=== PATIENT | female | born 1955 | race Caucasian/White ===

== ENCOUNTER 2021-11-18 15:49 | Emergency (ER) | payer MEDICARE ==
[2021-11-18] VITALS (8 sets, daily range): BP systolic 96–176; BP diastolic 75–121
[~2021-11-18] VITALS: Ht 162.6 cm; Wt 70.0 kg
[~2021-11-18 15:49] MED LIST: ARAVA20 MG PO; ASPIRIN81 MG PO; CIPROFLOXACN500 MG PO; ESTRACE VAG0.1 MG/GM VA; ESTRACE1 MG PO; ESTRADIOL0.5 MG PO; ESTRADIOL1 MG PO; FOLIC ACID1 MG PO; LOPRESSOR 550 MG/TAB PO; METHOTREXATE25 MG/ML IJ; METRONIDAZOL500 MG PO; MSM/GLUCOSA1 PO; PLAQUENIL200 MG OR; RAYOS5 MG PO
[2021-11-18] MEDS ORDERED: BUPROPION100 MG PO (16:28)
[2021-11-18] MEDS ORDERED: CALCIUM 600+D31 TA2 (16:30)
[2021-11-18 16:33] LABS: IMMATURE GRANULOCYTES 0.3 % (0.0-5.0); MEAN CELL VOLUME 96.6 fL CALC (80.0-100.0); MEAN CORPUSCULAR HGB CONC 33.1 g/dL CAL (32.0-36.0); NEUT# 4.51 thou/uL (2.00-7.15); RED BLOOD COUNT 4.75 mill/uL (4.20-5.60); RED CELL DISTRI WIDTH 13.2 % (11.5-15.5)
[2021-11-18 16:42] LABS: HEMATOCRIT 45.9 % (37.0-47.0); HEMOGLOBIN 15.2 g/dl (12.0-16.0)
[2021-11-18 16:45] LABS: ALKALINE PHOSPHATASE 103 u/l (38-126); ANION GAP 18 (6-22 (CALC)); BILIRUBIN, TOTAL 0.7 mg/dL (0.0-1.4); BUN 17 mg/dL (8-23); BUN/CREATININE RATIO 24 (12-20 (CALC)); CARBON DIOXIDE 25 mmol/l (22-30); CHLORIDE 105 mmol/l (95-108); CREATININE 0.7 mg/dL (0.5-1.0); GFR > 60 ML/MIN (>=60 (CALC)); GFR FOR AFR.AMER. > 60 ML/MIN (>=60 (CALC)); POTASSIUM 3.5 mmol/l (3.5-5.1); SGOT/AST 24 u/l (9-36); SODIUM 144 mmol/l (137-146)
[2021-11-18 16:50] LABS: TOTAL PROTEIN 8.6 g/dL (6.3-8.2)
[2021-11-18 17:16] LABS: TSH, 3RD GENERATION 3.11 uIU/mL (0.47 - 4.68)
[2021-11-18] MEDS ORDERED: ZESTRIL5 M1 PO ×2 (17:55→18:07)
== END 2021-11-18 18:19 | disposition home or self-care (01) ==
LOC: ED 15:49
PROVIDERS: Family Medicine
DX: R00.0 Tachycardia, unspecified (principal); I67.1 Cerebral aneurysm, nonruptured; Z95.828 Presence of other vascular implants and grafts

== ENCOUNTER 2022-02-09 13:32 | Emergency (ER) | payer MEDICARE ==
[~2022-02-09] VITALS: Ht 162.6 cm; Wt 65.9 kg
[~2022-02-09 13:32] MED LIST changes: +BUPROPION100 MG PO; +CALCIUM 600+D31 TA2; +ZESTRIL5 M1 PO
[2022-02-09 14:06] LABS: HEMATOCRIT 42.3 % (37.0-47.0); HEMOGLOBIN 13.7 g/dl (12.0-16.0); IMMATURE GRANULOCYTES 0.3 % (0.0-5.0); MEAN CELL VOLUME 97.2 fL CALC (80.0-100.0); MEAN CORPUSCULAR HGB 31.5 pG CALC (26.0-32.0); MEAN CORPUSCULAR HGB CONC 32.4 g/dL CAL (32.0-36.0); NEUT# 6.24 thou/uL (2.00-7.15); RED BLOOD COUNT 4.35 mill/uL (4.20-5.60); RED CELL DISTRI WIDTH 13.3 % (11.5-15.5)
[2022-02-09 14:19] LABS: ALBUMIN 4.4 g/dL (3.2-5.0); ALKALINE PHOSPHATASE 97 u/l (38-126); ANION GAP 11 (6-22 (CALC)); BILIRUBIN, TOTAL 0.5 mg/dL (0.0-1.4); BUN 17 mg/dL (8-23); BUN/CREATININE RATIO 24 (12-20 (CALC)); CARBON DIOXIDE 24 mmol/l (22-30); CHLORIDE 107 mmol/l (95-108); CREATININE 0.7 mg/dL (0.5-1.0); GFR FOR AFR.AMER. > 60 ML/MIN (>=60 (CALC)); GFR OTHER RACES > 60 ML/MIN (>=60 (CALC)); POTASSIUM 3.8 mmol/l (3.5-5.1); SGOT/AST 19 u/l (9-36); SODIUM 138 mmol/l (137-146)
[2022-02-09 14:35] LABS: URINE BILIRUBIN - DIPSTICK NEGATIVE (NEGATIVE); URINE BLOOD DIPSTICK TRACE-INTACT (NEGATIVE); URINE COLOR YELLOW; URINE GLUCOSE - DIPSTICK NEGATIVE (NEGATIVE); URINE KETONE NEGATIVE (NEGATIVE); URINE LEUK ESTERASE NEGATIVE (NEGATIVE); URINE PROTEIN - DIPSTICK NEGATIVE (NEG-TRACE); URINE SPECIFIC GRAVITY <=1.005; URINE UROBILINOGEN - DIPSTICK 0.2 E.U./dL (0.2)
[2022-02-09 14:37] LABS: URINE NITRITE - DIPSTICK NEGATIVE (Negative)
[2022-02-09] MEDS ORDERED: CARDIZEM60 MG PO (15:02)
[2022-02-09 15:33] VITALS: BP 131/79
== END 2022-02-09 15:36 | disposition home or self-care (01) ==
LOC: ED 13:32 → ED-I 14:06 → ED 14:06 → ED-I 14:28 → ED 15:36
PROVIDERS: Family Medicine
DX: I48.91 Unspecified atrial fibrillation (principal); T44.7X6A Underdosing of beta-adrenoreceptor antagonists, initial encounter; Z91.128 Patient's intentional underdosing of medication regimen for other reason; Z95.828 Presence of other vascular implants and grafts; Z86.79 Personal history of other diseases of the circulatory system; Z20.822 Contact with and (suspected) exposure to COVID-19
CPT/HCPCS: J1650

== ENCOUNTER 2022-04-21 08:27 | Day surgery (SDC) | payer MEDICARE ==
[~2022-04-21] VITALS: Ht 152.4 cm; Wt 68.0 kg
[~2022-04-21 08:27] MED LIST changes: +CARDIZEM60 MG PO; +FLECAINIDE50 MG PO; +SIMPONI50 MG/0.1; +VITAMIN C1000 MG PO
[2022-04-21 10:55] VITALS: BP 105/76
== END 2022-04-21 10:58 | disposition home or self-care (01) ==
LOC: ENDO 08:27 → ORM 12:20
PROVIDERS: ATTEND Internal Medicine Gastroenterology
PROC: 0DJD8ZZ Inspection of Lower Intestinal Tract, Via Natural or Artificial Opening Endoscopic (ICD-10-PCS; principal; 2022-04-21)
PROC: 0DB98ZX Excision of Duodenum, Via Natural or Artificial Opening Endoscopic, Diagnostic (ICD-10-PCS; 2022-04-21)
PROC: 0DB78ZX Excision of Stomach, Pylorus, Via Natural or Artificial Opening Endoscopic, Diagnostic (ICD-10-PCS; 2022-04-21)
DX: Z12.11 Encounter for screening for malignant neoplasm of colon (principal); K64.8 Other hemorrhoids; K57.30 Diverticulosis of large intestine without perforation or abscess without bleeding; K29.70 Gastritis, unspecified, without bleeding
CPT/HCPCS: 43239; G0121

== ENCOUNTER 2022-12-14 08:35 | Emergency (ER) | payer MEDICARE ==
[~2022-12-14] VITALS: Ht 152.4 cm; Wt 61.0 kg
[2022-12-14] MEDS ORDERED: ARAVA20 MG PO (09:04)
[2022-12-14] MEDS ORDERED: ALDACTONE25 MG PO (09:12)
[2022-12-14] MEDS ORDERED: VERAPAMIL HCL240 MG PO (09:13)
[2022-12-14 09:14] LABS: BASO% 0.3 % (0-3); IMMATURE GRANULOCYTES 0.7 % (0.0-5.0); LYMPH% 16.6 % (15-41); MEAN CELL VOLUME 93.1 fL CALC (80.0-100.0); MEAN CORPUSCULAR HGB 31.5 pG CALC (26.0-32.0); MEAN CORPUSCULAR HGB CONC 33.8 g/dL CAL (32.0-36.0); NEUT# 6.81 thou/uL (2.00-7.15); NEUT% 65.4 % (42-76); RED BLOOD COUNT 3.49 mill/uL (4.20-5.60); RED CELL DISTRI WIDTH 13.2 % (11.5-15.5)
[2022-12-14] MEDS ORDERED: CRESTOR10 MG PO (09:14)
[2022-12-14 09:21] LABS: HEMATOCRIT 32.5 % (37.0-47.0)
[2022-12-14 09:23] LABS: ALKALINE PHOSPHATASE 94 u/l (38-126); BUN 15 mg/dL (8-23); BUN/CREATININE RATIO 13 (12-20 (CALC)); CARBON DIOXIDE 22 mmol/l (22-30); CHLORIDE 102 mmol/l (95-108); CREATININE 1.2 mg/dL (0.5-1.0); GFR FOR AFR.AMER. 54 ML/MIN (>=60 (CALC)); GFR OTHER RACES 45 ML/MIN (>=60 (CALC)); LIPASE < 10 u/l (23-300); SGOT/AST 34 u/l (9-36); TOTAL PROTEIN 7.4 g/dL (6.3-8.2)
[2022-12-14 09:24] LABS: ANION GAP 11 (6-22 (CALC)); BILIRUBIN, TOTAL 0.8 mg/dL (0.02-1.3); POTASSIUM 3.4 mmol/l (3.5-5.1); SODIUM 132 mmol/l (137-146)
[2022-12-14] MEDS ORDERED: LEVAQUIN750 M1 PO (10:44)
[2022-12-14 10:53] VITALS: BP 119/72
== END 2022-12-14 11:01 | disposition home or self-care (01) ==
LOC: ED 08:35
PROVIDERS: Family Medicine
DX: A04.5 Campylobacter enteritis (principal); A04.0 Enteropathogenic Escherichia coli infection; I10 Essential (primary) hypertension; I48.91 Unspecified atrial fibrillation; Z96.89 Presence of other specified functional implants
CPT/HCPCS: Q9967